=== PATIENT | male | born 1990 | race Caucasian/White ===

== ENCOUNTER 2022-04-04 10:30 | Outpatient (RCR) | payer OTHER, SELFPAY ==
--- NOTE | 2022-02-18 09:29 | PTOPEVAL1 ---
Assessment and note entered by Abigail Henriquez, PT Evaluation Information Assessment Status Evaluation Diagnosis L ankle sprain Onset 01/02/2022 Subjective Information Swelling and bruising took 5 weeks to resolve, cont to have swelling Haven't been able to run, still hurts in the morning with waking Reported Pain Level Pain Score 0: Self Report Assessment PT Clinical Summary Pt presents approx 7 weeks after initial injury of left ankle. History and presentation suggests severe sprain if not full tear of anterior talofibular ligament. Today pt cont to demo decreased Active ROM of left ankle, abnormal running kinematics, abnormal ankle/foot alignment beatrice with running, difficulty with left single leg balance compared to right, and reports of pain assoc with changes in weight bearing positions all suggestive of ankle instability. 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 Thus pt will benefit from therapy for range of motion, stability training, improvement of running kinematics, and overall reduction of pain to allow him to return to his prior level of function. Plan of Care Interventions Electrical Stimulation,Gait Training,Hot Pack/Cold Pack,Manual Therapy,Neuro Re-education,Patient/ Caregiver Ed,Therapeutic Activities, Therapeutic Exercise,Self-Care/Home Management, Ultrasound,Other Other Interventions bracing and taping PT Services Indicated Yes These treatments will address the objective and functional deficits as defined above. The patient will be advanced safely and appropriately in order for the patient to progress towards his/her prior level of function. Additional exercises will be introduced and as well as a comprehensive home exercise program upon discharge, if needed, ?to ensure carryover of functional gains achieved in the clinic. This treatment plan has been reviewed and agreement upon by the patient.
--- NOTE | 2022-03-29 12:47 | BUPTOPEVAL1 ---
Assessment and note entered by Abigail Henriquez, PT Evaluation Information Assessment Status Progress Diagnosis L ankle sprain Onset 01/02/2022 Subjective Information Pt reports feeling 50% improved overall. Is able to stand and walk without pain and difficulty, feels more normal when first getting up in the morning. Is able to jog on level surface again. Is not able to run/sprint or jog on inclines without pain. Reported Pain Level Pain Score 0: Self Report Assessment PT Clinical Summary Pt has been attending therapy consistently for ankle instability and pain. Pt reports feeling 50% improved overall. He reports pain at 0/10 at best , ankle feels normal in the mornings now, and has 3/10 at worst rating. Has been able to run on level ground at a jogging pace without pain. Is unable to run on incline or sprint, or perform fast direction changes. Cont to have increased pressure with attempted soleous stretching and increased dorsiflexion. Pt is a highly active young man who plays soccer and [place] competitively thus requiring high level stability and ROM for activities. He has demo'd great improvement however has yet to meet his goals and has not plateaued in his progress. Thus Pt would benefit from cont therapy to cont improving and meet his functional goals. Plan of Care Interventions Electrical Stimulation,Gait Training,Hot Pack/Cold Pack,Manual Therapy,Neuro Re-education,Patient/ Caregiver Educati,Therapeutic Activities, Therapeutic Exercise,Self-Care/Home Management, Ultrasound,Other Other Interventions bracing and taping PT Services Indicated Yes Treatment Frequency and 1x weekly x 6 weeks Duration These treatments will address the objective and functional deficits as defined above. The patient will be advanced safely and appropriately in order for the patient to progress towards his/her prior level of function. Additional exercises will be introduced and as well as a comprehensive home exercise program upon discharge, if needed, ?to ensure carryover of functional gains achieved in the clinic. This treatment plan has been reviewed and agreement upon by the patient.
--- NOTE | 2022-04-20 16:07 | PTOPDC ---
Assessment and note entered by Abigail Henriquez, PT Assessment Status Discharge - Pt Not Present Diagnosis L ankle sprain Onset 01/02/2022 Subjective Information Pt reports feeling 50% improved overall. Is able to stand and walk without pain and difficulty, feels more normal when first getting up in the morning. Is able to jog on level surface again. Is not able to run/sprint or jog on inclines without pain. Assessment PT Clinical Summary Pt called, reporting he has been working out and running, is doing very well. Reports he has to really push it to have discomfort. Feels he no longer requires therapy. Thus pt is being discharged from therapy POC at this time.
== END 2022-04-21 10:24 | disposition home or self-care (01) ==
LOC: ANHHIPT 10:30
PROVIDERS: PCP Family Medicine; Visit Provider Family Medicine
DX: S99.919D Unspecified injury of unspecified ankle, subsequent encounter (principal); S93.409D Sprain of unspecified ligament of unspecified ankle, subsequent encounter
CPT/HCPCS: 97014; 97032; 97110; 97112; 97140; 97161; G0283